=== PATIENT | male | born 1990 | race Caucasian/White ===

== ENCOUNTER 2017-04-24 04:14 | Emergency (ER) | payer OTHER ==
[~2017-04-24] VITALS: Ht 175.3 cm; Wt 77.3 kg
[2017-04-24] MEDS: HYDROCODONE/ACETAMINOPHEN 5-325 MG TABLET PO ONE (06:11)
[2017-04-24] MEDS: CLINDAMYCIN PHOS 150 MG/ML 4 ML VIAL IM ONE (06:29)
[2017-04-24 06:33] VITALS: BP 120/79
== END 2017-04-24 06:34 | disposition home or self-care (01) ==
LOC: EMS 04:14
DX: K04.7 Periapical abscess without sinus (principal); G43.909 Migraine, unspecified, not intractable, without status migrainosus; Z88.0 Allergy status to penicillin; Z98.890 Other specified postprocedural states
CPT/HCPCS: 96372; 99283; S0077

== ENCOUNTER 2021-05-26 02:40 | Inpatient (IN) | payer MEDICAID, OTHER ==
[~2021-05-26] VITALS: Ht 175.3 cm; Wt 99.3 kg
[~2021-05-26 02:40] MED LIST: DIVA-112 PO; GABA-1181 PO; PROZ20 PO
[2021-05-26 03:28] LABS: BASOPHILS % (AUTO) 0.7 % (0.0-2.0); EOSINOPHILS % (AUTO) 1.7 % (1.0-6.0); HEMATOCRIT 44.3 % (41-53); HEMOGLOBIN 14.9 g/dL (13.5-17.5); LYMPHOCYTES # (AUTO) 1.8 K/uL (1.0-4.8); LYMPHOCYTES % (AUTO) 28.9 % (22.0-44.0); MEAN CORPUSCULAR HEMOGLOBIN 26.9 pg (26.0-34.0); MEAN CORPUSCULAR HGB CONC 33.6 G/dL (31.0-37.0); MEAN CORPUSCULAR VOLUME 80 fL (80-100); MONOCYTES # (AUTO) 0.4 K/uL (0.1-1.0); MONOCYTES % (AUTO) 6.8 % (2.0-9.0); NEUTROPHILS # (AUTO) 3.9 K/uL (1.8-7.7); NEUTROPHILS % (AUTO) 61.9 % (40.0-70.0); PLATELET COUNT (AUTO) 335 K/uL (150-450); RED BLOOD CELL COUNT(AUTO) 5.53 MIL/uL (4.50-5.90); RED CELL DISTRIBUTION WIDTH 14.3 % (11.5-14.5)
[2021-05-26 03:34] LABS: ANION GAP 8 mmol/L (8-16); CALCIUM, TOTAL 9.2 mg/dL (8.8-10.5); CARBON DIOXIDE 28 mmol/L (22-29); CHLORIDE 102 mmol/L (98-107); CREATININE 0.87 mg/dL (0.60-1.30); GLOMERULAR FILTR. RATE CALC > 60 mL/min (>60); GLUCOSE,RANDOM 99 mg/dL (70-110); POTASSIUM 3.3 mmol/L (3.5-5.1); SODIUM SERUM 138 mmol/L (136-145); UREA NITROGEN, BLOOD 10 mg/dL (7-18)
[2021-05-26 03:41] LABS: ALANINE AMINOTRANSFERASE 24 U/L (12-78); ALBUMIN 3.8 g/dL (3.4-5.0); ALKALINE PHOSPHATASE 78 U/L (46-116); ASPARTATE AMINOTRANSFERASE 15 U/L (15-37); BILIRUBIN,TOTAL 0.4 mg/dL (0.1-1.0); TOTAL PROTEIN, SERUM 7.5 g/dL (6.4-8.2)
[2021-05-26 03:43] LABS: VALPROIC ACID < 3 mcg/mL (50-100)
[2021-05-26 03:57] LABS: COVID AG,FIA SOURCE NASAL SWAB
[2021-05-26 04:24] LABS: AMPHET/METH SCREEN,URINE NEGATIVE (NEGATIVE); BARBITURATE SCREEN, URINE NEGATIVE (NEGATIVE); BENZODIAZEPINES SCREEN,URINE NEGATIVE (NEGATIVE); CANNABINOID SCREEN,URINE POSITIVE (NEGATIVE); COCAINE SCREEN,URINE NEGATIVE (NEGATIVE); METHADONE SCREEN, URINE NEGATIVE (NEGATIVE); OPIATE SCREEN,URINE NEGATIVE (NEGATIVE)
[2021-05-26 04:27] LABS: PHENCYCLIDINE SCREEN,URINE NEGATIVE (NEGATIVE)
[2021-05-26] MEDS ORDERED: POTASSIUM CHLORIDE 20 MEQ ER TABLET PO ONE (07:15)
[2021-05-26] MEDS ORDERED: LORazepam 2 MG TABLET PO PRN (08:00)
[2021-05-26] MEDS ORDERED: HALOPERIDOL 5 MG TABLET PO PRN (08:00)
[2021-05-26 11:13] VITALS: BP 103/73
[2021-05-26] MEDS: FLUoxetine HCL 20 MG CAPSULE PO SCH (12:23)
[2021-05-26] MEDS: DIVALPROEX SODIUM 500 MG DR TABLET PO SCH (12:24)
[2021-05-26] MEDS ORDERED: ACETAMINOPHEN 325 MG TABLET PO PRN (13:45)
[2021-05-26] MEDS ORDERED: NICOTINE 14 MG/24 HOUR PATCH TD PRN (13:45)
[2021-05-26] MEDS ORDERED: PETROLATUM,WHITE 28 GM JELLY TP PRN (13:45)
[2021-05-26] MEDS ORDERED: LOPERAMIDE HCL 2 MG CAPSULE PO PRN (13:45)
[2021-05-26] MEDS ORDERED: MAG HYDROX/AL HYDROX/SIMETH ES 30 ML SUSPENSION UDCUP PO PRN (13:45)
[2021-05-26] MEDS ORDERED: GuaiFENesin/D-METHORPHAN [SUGAR-FREE] 200-20MG/10 ML SYRUP UDCUP PO PRN (13:45)
[2021-05-26] MEDS ORDERED: DOCUSATE SODIUM 100 MG CAPSULE PO PRN (13:45)
[2021-05-26] MEDS ORDERED: IBUPROFEN 400 MG TABLET PO PRN (13:45)
[2021-05-26] MEDS ORDERED: CloNIDine HCL 0.1 MG TABLET PO PRN (13:45)
[2021-05-26] MEDS ORDERED: ALBUTEROL SULFATE HFA 90 MCG/PUFF 8 GM INHALER IH PRN (13:45)
[2021-05-26] MEDS ORDERED: MAGNESIUM HYDROXIDE SUSPENSION 30 ML UDCUP PO PRN (13:45)
[2021-05-26] MEDS ORDERED: ONDANSETRON HCL 4 MG TABLET PO PRN (13:45)
[2021-05-26 16:05] VITALS: BP 113/72
[2021-05-26] MEDS: GABAPENTIN 300 MG CAPSULE PO SCH (16:16)
[2021-05-27 00:50] VITALS: BP 117/76
[2021-05-27 08:07] VITALS: BP 111/66
[2021-05-27] MEDS: DIVALPROEX SODIUM 500 MG DR TABLET PO SCH (08:38)
[2021-05-27] MEDS: FLUoxetine HCL 20 MG CAPSULE PO SCH (08:38)
[2021-05-27] MEDS: GABAPENTIN 300 MG CAPSULE PO SCH ×2 (08:38→16:06)
[2021-05-27 16:03] VITALS: BP 116/69
[2021-05-27] MEDS: ZOLPIDEM TARTRATE 10 MG TABLET PO PRN (21:51)
[2021-05-28 05:25] VITALS: BP 110/66
[2021-05-28 08:14] VITALS: BP 114/73
[2021-05-28] MEDS: FLUoxetine HCL 20 MG CAPSULE PO SCH (08:50)
[2021-05-28] MEDS: DIVALPROEX SODIUM 500 MG DR TABLET PO SCH (08:50)
[2021-05-28] MEDS: GABAPENTIN 300 MG CAPSULE PO SCH ×2 (08:51→16:58)
[2021-05-28] MEDS: ZOLPIDEM TARTRATE 10 MG TABLET PO PRN (21:46)
[2021-05-29 06:08] VITALS: BP 126/78
[2021-05-29 08:35] VITALS: BP 124/70
[2021-05-29] MEDS: GABAPENTIN 300 MG CAPSULE PO SCH (09:00)
[2021-05-29] MEDS: FLUoxetine HCL 20 MG CAPSULE PO SCH (09:00)
[2021-05-29] MEDS: DIVALPROEX SODIUM 500 MG DR TABLET PO SCH (09:00)
[2021-05-29] MEDS ORDERED: DIVA-112 PO (11:10)
[2021-05-29] MEDS ORDERED: GABA-1181 PO (11:10)
[2021-05-29] MEDS ORDERED: PROZ20 PO (11:10)
== END 2021-05-29 13:47 | disposition home or self-care (01) | DRG 753 ==
LOC: EMS 02:41 → B2S 08:35
PROVIDERS: ADMIT Psychiatry & Neurology Child & Adolescent Psychiatry; ATTEND Psychiatry & Neurology Child & Adolescent Psychiatry
DX: F31.4 Bipolar disorder, current episode depressed, severe, without psychotic features (principal); R45.851 Suicidal ideations; E66.9 Obesity, unspecified; Z20.822 Contact with and (suspected) exposure to COVID-19; E87.6 Hypokalemia; H54.61 Unqualified visual loss, right eye, normal vision left eye; F12.10 Cannabis abuse, uncomplicated; Z88.0 Allergy status to penicillin; Z59.00 Homelessness unspecified; Z68.32 Body mass index [BMI] 32.0-32.9, adult
CPT/HCPCS: 80053; 80164; 85025; 87081; 99285; G0480

== ENCOUNTER 2021-06-03 07:31 | Emergency (ER) | payer MEDICAID, OTHER ==
[~2021-06-03] VITALS: Ht 172.7 cm; Wt 100.0 kg
[2021-06-03 07:33] VITALS: BP 108/61
[2021-06-03 08:04] LABS: COVID AG,FIA SOURCE NASOPHARYNGEAL
[2021-06-03 08:26] LABS: BASOPHILS % (AUTO) 0.9 % (0.0-2.0); EOSINOPHILS % (AUTO) 1.7 % (1.0-6.0); HEMATOCRIT 43.4 % (41-53); HEMOGLOBIN 14.4 g/dL (13.5-17.5); LYMPHOCYTES # (AUTO) 1.7 K/uL (1.0-4.8); LYMPHOCYTES % (AUTO) 27.2 % (22.0-44.0); MEAN CORPUSCULAR HEMOGLOBIN 26.9 pg (26.0-34.0); MEAN CORPUSCULAR HGB CONC 33.3 G/dL (31.0-37.0); MEAN CORPUSCULAR VOLUME 81 fL (80-100); MONOCYTES # (AUTO) 0.3 K/uL (0.1-1.0); MONOCYTES % (AUTO) 4.5 % (2.0-9.0); NEUTROPHILS # (AUTO) 4.1 K/uL (1.8-7.7); NEUTROPHILS % (AUTO) 65.7 % (40.0-70.0); PLATELET COUNT (AUTO) 299 K/uL (150-450); RED BLOOD CELL COUNT(AUTO) 5.38 MIL/uL (4.50-5.90)
[2021-06-03 08:35] LABS: ANION GAP 8 mmol/L (8-16); CALCIUM, TOTAL 9.4 mg/dL (8.8-10.5); CARBON DIOXIDE 28 mmol/L (22-29); CHLORIDE 104 mmol/L (98-107); CREATININE 1.17 mg/dL (0.60-1.30); GLOMERULAR FILTR. RATE CALC > 60 mL/min (>60); GLUCOSE,RANDOM 156 mg/dL (70-110); POTASSIUM 3.7 mmol/L (3.5-5.1); SODIUM SERUM 140 mmol/L (136-145); UREA NITROGEN, BLOOD 11 mg/dL (7-18)
[2021-06-03 08:42] LABS: ALANINE AMINOTRANSFERASE 31 U/L (12-78); ALBUMIN 3.8 g/dL (3.4-5.0); ALKALINE PHOSPHATASE 76 U/L (46-116); ASPARTATE AMINOTRANSFERASE 15 U/L (15-37); BILIRUBIN,TOTAL 0.3 mg/dL (0.1-1.0); TOTAL PROTEIN, SERUM 7.7 g/dL (6.4-8.2)
[2021-06-03 09:09] LABS: AMPHET/METH SCREEN,URINE NEGATIVE (NEGATIVE); BARBITURATE SCREEN, URINE NEGATIVE (NEGATIVE); BENZODIAZEPINES SCREEN,URINE NEGATIVE (NEGATIVE); CANNABINOID SCREEN,URINE POSITIVE (NEGATIVE); COCAINE SCREEN,URINE NEGATIVE (NEGATIVE); METHADONE SCREEN, URINE NEGATIVE (NEGATIVE); OPIATE SCREEN,URINE NEGATIVE (NEGATIVE); PHENCYCLIDINE SCREEN,URINE NEGATIVE (NEGATIVE)
== END 2021-06-03 12:47 | disposition home or self-care (01) ==
LOC: EMS 07:36
DX: R45.851 Suicidal ideations (principal); F32.9 Major depressive disorder, single episode, unspecified; F17.210 Nicotine dependence, cigarettes, uncomplicated; Z20.822 Contact with and (suspected) exposure to COVID-19; Z91.14 Patient's other noncompliance with medication regimen; Z59.00 Homelessness unspecified
CPT/HCPCS: 36415; 80053; 80164; 80307; 85025; 87426; 93005; 99284; G0480

== ENCOUNTER 2022-08-28 22:05 | Emergency (ER) | payer MEDICAID, OTHER ==
[~2022-08-28] VITALS: Ht 175.3 cm; Wt 72.0 kg
[2022-08-28 22:17] VITALS: TEMP 98.4
[2022-08-28 23:45] VITALS: BP 115/69; PULSE 83; RESP 18
[2022-08-28] MEDS ORDERED: SODIUM CHLORIDE 0.9% 1,000 ML IV ONE (23:45)
== END 2022-08-29 01:10 | disposition left against medical advice (07) ==
LOC: EMS 22:05
DX: R42 Dizziness and giddiness (principal); F17.210 Nicotine dependence, cigarettes, uncomplicated; F12.90 Cannabis use, unspecified, uncomplicated; F15.90 Other stimulant use, unspecified, uncomplicated; H54.8 Legal blindness, as defined in USA; Z98.890 Other specified postprocedural states; Z88.0 Allergy status to penicillin
CPT/HCPCS: 93005; 99283

== ENCOUNTER 2022-09-04 20:08 | Emergency (ER) | payer OTHER ==
[~2022-09-04] VITALS: Ht 175.3 cm; Wt 86.0 kg
[2022-09-04 21:02] VITALS: BP 124/74; PULSE 76; RESP 17; TEMP 98
[2022-09-04] MEDS ORDERED: LevETIRAcetam 1,000 MG in DEXTROSE 5%-WATER 100 ML IV ONE (21:15)
[2022-09-04] MEDS ORDERED: GABAPENTIN 300 MG CAPSULE PO ONE (21:15)
[2022-09-04] MEDS ORDERED: VALPROIC ACID 250 MG CAPSULE PO ONE (21:15)
[2022-09-04 21:35] LABS: BASOPHILS % (AUTO) 0.8 % (0.0-2.0); EOSINOPHILS % (AUTO) 4.1 % (1.0-6.0); HEMATOCRIT 35.8 % (41-53); HEMOGLOBIN 11.8 g/dL (13.5-17.5); MEAN CORPUSCULAR HEMOGLOBIN 27.1 pg (26.0-34.0); MEAN CORPUSCULAR HGB CONC 32.8 G/dL (31.0-37.0); MEAN CORPUSCULAR VOLUME 83 fL (80-100); MONOCYTES # (AUTO) 0.7 K/uL (0.1-1.0); MONOCYTES % (AUTO) 8.3 % (2.0-9.0); NEUTROPHILS # (AUTO) 5.5 K/uL (1.8-7.7); NEUTROPHILS % (AUTO) 63.8 % (40.0-70.0); PLATELET COUNT (AUTO) 326 K/uL (150-450); RED BLOOD CELL COUNT(AUTO) 4.34 MIL/uL (4.50-5.90); RED CELL DISTRIBUTION WIDTH 14.5 % (11.5-14.5)
[2022-09-04 21:43] LABS: ANION GAP 7 mmol/L (8-16); CALCIUM, TOTAL 8.5 mg/dL (8.8-10.5); CARBON DIOXIDE 28 mmol/L (22-29); CHLORIDE 102 mmol/L (98-107); CREATININE 0.82 mg/dL (0.60-1.30); GLOMERULAR FILTR. RATE CALC > 60 mL/min (>60); GLUCOSE,RANDOM 128 mg/dL (70-110); POTASSIUM 3.3 mmol/L (3.5-5.1); SODIUM SERUM 137 mmol/L (136-145)
[2022-09-04] MEDS ORDERED: POTASSIUM CHLORIDE 10% 40 MEQ/30 ML LIQUID UDCUP PO ONE (23:00)
== END 2022-09-04 23:26 | disposition home or self-care (01) ==
LOC: EMS 20:09
DX: G40.909 Epilepsy, unspecified, not intractable, without status epilepticus (principal); F32.A Depression, unspecified; F17.210 Nicotine dependence, cigarettes, uncomplicated; F12.90 Cannabis use, unspecified, uncomplicated; F15.90 Other stimulant use, unspecified, uncomplicated; Z88.0 Allergy status to penicillin
CPT/HCPCS: 99284; 96365; 80048; 85025; J0712; G0480; J7060

== ENCOUNTER 2022-12-18 12:33 | Inpatient (IN) | payer MEDICAID ==
[2022-12-18 14:56] LABS: GLUCOMETER DEV NAME(LOC) POC.BV; POC SARS-COV2 AG, FIA NEGATIVE (NEGATIVE)
[2022-12-18] MEDS ORDERED: LORazepam 2 MG/ML VIAL ONE (15:06)
[2022-12-18] MEDS ORDERED: HALOPERIDOL LACTATE 5 MG/ML VIAL ONE (15:07)
[2022-12-18] MEDS ORDERED: DiphenhydrAMINE HCL 50 MG/ML VIAL ONE (15:07)
[2022-12-18] MEDS ORDERED: SERT-439 PO (15:09)
[2022-12-18] MEDS ORDERED: GABA800T9 PO (15:09)
[2022-12-18] MEDS ORDERED: LORazepam 2 MG TABLET PO PRN (15:45)
[2022-12-18] MEDS ORDERED: ZOLPIDEM TARTRATE 10 MG TABLET PO PRN (15:45)
[2022-12-18] MEDS ORDERED: HALOPERIDOL 5 MG TABLET PO PRN (15:45)
[2022-12-18] MEDS ORDERED: INFLUENZA VIRUS VACCINE QVS 2023-24 (6MO+)/PF 60 MCG/0.5 ML SYRINGE IM. ONE (20:30)
[2022-12-19 07:11] VITALS: BP 100/58; PULSE 60; RESP 18; TEMP 97.8; O2SAT 99
[2022-12-19 09:18] VITALS: BP 105/60; PULSE 61; RESP 17; TEMP 96.9; O2SAT 96
[2022-12-19] MEDS ORDERED: ALBUTEROL SULFATE HFA 90 MCG/PUFF 8 GM INHALER IH PRN (10:00)
[2022-12-19] MEDS ORDERED: IBUPROFEN 400 MG TABLET PO PRN (10:00)
[2022-12-19] MEDS ORDERED: LOPERAMIDE HCL 2 MG CAPSULE PO PRN (10:00)
[2022-12-19] MEDS ORDERED: MAG HYDROX/ALUMINUM HYD/SIMETH ES 30 ML SUSPENSION UDCUP PO PRN (10:00)
[2022-12-19] MEDS ORDERED: GuaiFENesin/D-METHORPHAN [SUGAR-FREE] 200-20MG/10 ML SYRUP UDCUP PO PRN (10:00)
[2022-12-19] MEDS ORDERED: DOCUSATE SODIUM 100 MG CAPSULE PO PRN (10:00)
[2022-12-19] MEDS ORDERED: MAGNESIUM HYDROXIDE SUSPENSION 30 ML UDCUP PO PRN (10:00)
[2022-12-19] MEDS ORDERED: CloNIDine HCL 0.1 MG TABLET PO PRN (10:00)
[2022-12-19] MEDS ORDERED: ACETAMINOPHEN 325 MG TABLET PO PRN (10:00)
[2022-12-19] MEDS ORDERED: ONDANSETRON HCL 4 MG TABLET PO PRN (10:00)
[2022-12-19] MEDS ORDERED: NICOTINE 14 MG/24 HOUR PATCH TD PRN (10:00)
[2022-12-19] MEDS ORDERED: PETROLATUM,WHITE 28 GM JELLY TP PRN (10:00)
[2022-12-19] MEDS: GABAPENTIN 400 MG CAPSULE PO SCH ×2 (12:13→16:21)
[2022-12-19 20:39] VITALS: BP 92/53; PULSE 70; RESP 18; TEMP 97.3; O2SAT 99
[2022-12-20] MEDS: SERTRALINE HCL 50 MG TABLET PO SCH (08:44)
[2022-12-20] MEDS: DIVALPROEX SODIUM 500 MG DR TABLET PO SCH (08:44)
[2022-12-20] MEDS: GABAPENTIN 400 MG CAPSULE PO SCH ×3 (08:44→17:08)
[2022-12-20 08:52] VITALS: BP 110/68; PULSE 62; RESP 16; TEMP 97.7; O2SAT 99
[2022-12-20 09:06] LABS: BASOPHILS % (AUTO) 0.5 % (0.0-2.0); HEMATOCRIT 44.5 % (41-53); HEMOGLOBIN 14.5 g/dL (13.5-17.5); LYMPHOCYTES # (AUTO) 1.2 K/uL (1.0-4.8); LYMPHOCYTES % (AUTO) 16.6 % (22.0-44.0); MEAN CORPUSCULAR HEMOGLOBIN 27.1 pg (26.0-34.0); MEAN CORPUSCULAR HGB CONC 32.5 G/dL (31.0-37.0); MEAN CORPUSCULAR VOLUME 83 fL (80-100); MONOCYTES # (AUTO) 0.4 K/uL (0.1-1.0); NEUTROPHILS # (AUTO) 5.6 K/uL (1.8-7.7); NEUTROPHILS % (AUTO) 75.9 % (40.0-70.0); PLATELET COUNT (AUTO) 338 K/uL (150-450); RED BLOOD CELL COUNT(AUTO) 5.34 MIL/uL (4.50-5.90); RED CELL DISTRIBUTION WIDTH 14.5 % (11.5-14.5); WHITE BLOOD COUNT (AUTO) 7.3 K/uL (4.5-11.0)
[2022-12-20 09:43] LABS: ALANINE AMINOTRANSFERASE 26 U/L (12-78); ALBUMIN 3.6 g/dL (3.4-5.0); ALKALINE PHOSPHATASE 70 U/L (46-116); ANION GAP 5 mmol/L (8-16); ASPARTATE AMINOTRANSFERASE 20 U/L (15-37); BILIRUBIN,TOTAL 0.3 mg/dL (0.1-1.0); CALCIUM, TOTAL 9.5 mg/dL (8.8-10.5); CARBON DIOXIDE 30 mmol/L (22-29); CHLORIDE 104 mmol/L (98-107); CREATININE 0.84 mg/dL (0.60-1.30); FREE T4 (FREE THYROXINE) 1.65 ng/dL (0.76-1.46); GLOMERULAR FILTR. RATE CALC > 60 mL/min (>60); GLUCOSE,RANDOM 86 mg/dL (70-110); POTASSIUM 4.1 mmol/L (3.5-5.1); SODIUM SERUM 139 mmol/L (136-145); THYROID STIMULATING HORMONE 0.37 uIU/mL (0.36-3.74); TOTAL PROTEIN, SERUM 7.6 g/dL (6.4-8.2); UREA NITROGEN, BLOOD 15 mg/dL (7-18)
[2022-12-20] MEDS ORDERED: SERT-439 PO (13:44)
[2022-12-20] MEDS ORDERED: DIVA-112 PO (13:44)
[2022-12-20] MEDS ORDERED: GABA-1201 PO (13:44)
[2022-12-20 20:56] VITALS: BP 129/73; PULSE 68; RESP 18; TEMP 97.6; O2SAT 97
[2022-12-21] MEDS: DIVALPROEX SODIUM 500 MG DR TABLET PO SCH (08:00)
[2022-12-21] MEDS: GABAPENTIN 400 MG CAPSULE PO SCH (08:00)
[2022-12-21] MEDS: SERTRALINE HCL 50 MG TABLET PO SCH (08:00)
[2022-12-21 08:33] VITALS: BP 112/67; PULSE 68; RESP 17; TEMP 97.5; O2SAT 100
[2022-12-21 09:29] LABS: CHOL/HDL RATIO 4.3 (4.2-7.3)
== END 2022-12-21 10:58 | disposition home or self-care (01) | DRG 751 ==
LOC: B3A 22:50
PROVIDERS: ADMIT Psychiatry & Neurology Child & Adolescent Psychiatry; ATTEND Psychiatry & Neurology Child & Adolescent Psychiatry
DX: F33.2 Major depressive disorder, recurrent severe without psychotic features (principal); G40.909 Epilepsy, unspecified, not intractable, without status epilepticus; F41.9 Anxiety disorder, unspecified; G47.00 Insomnia, unspecified; Z20.822 Contact with and (suspected) exposure to COVID-19; Z88.0 Allergy status to penicillin; Z79.899 Other long term (current) drug therapy
CPT/HCPCS: 80053; 80061; 83036; 84439; 84443; 85025; 86592; J1200; J1630; J2060

== ENCOUNTER 2022-12-18 16:07 | Emergency (ER) | payer MEDICAID, OTHER ==
[~2022-12-18] VITALS: Ht 172.7 cm; Wt 72.7 kg
[~2022-12-18 16:07] MED LIST changes: +GABA800T9 PO; +SERT-439 PO
[2022-12-18 16:58] VITALS: TEMP 97.7
[2022-12-18 17:31] LABS: BASOPHILS % (AUTO) 0.5 % (0.0-2.0); EOSINOPHILS % (AUTO) 2.4 % (1.0-6.0); HEMATOCRIT 37.5 % (41-53); HEMOGLOBIN 12.1 g/dL (13.5-17.5); LYMPHOCYTES # (AUTO) 1.6 K/uL (1.0-4.8); LYMPHOCYTES % (AUTO) 21.3 % (22.0-44.0); MEAN CORPUSCULAR HEMOGLOBIN 26.7 pg (26.0-34.0); MEAN CORPUSCULAR HGB CONC 32.3 G/dL (31.0-37.0); MEAN CORPUSCULAR VOLUME 83 fL (80-100); MONOCYTES # (AUTO) 0.5 K/uL (0.1-1.0); MONOCYTES % (AUTO) 7.1 % (2.0-9.0); NEUTROPHILS # (AUTO) 5.2 K/uL (1.8-7.7); NEUTROPHILS % (AUTO) 68.7 % (40.0-70.0); PLATELET COUNT (AUTO) 320 K/uL (150-450); RED BLOOD CELL COUNT(AUTO) 4.55 MIL/uL (4.50-5.90); RED CELL DISTRIBUTION WIDTH 14.7 % (11.5-14.5); WHITE BLOOD COUNT (AUTO) 7.6 K/uL (4.5-11.0)
[2022-12-18 17:42] LABS: ANION GAP 6 mmol/L (8-16); CALCIUM, TOTAL 8.9 mg/dL (8.8-10.5); CARBON DIOXIDE 28 mmol/L (22-29); CHLORIDE 104 mmol/L (98-107); GLOMERULAR FILTR. RATE CALC > 60 mL/min (>60); GLUCOSE,RANDOM 96 mg/dL (70-110); POTASSIUM 3.7 mmol/L (3.5-5.1); SODIUM SERUM 138 mmol/L (136-145); UREA NITROGEN, BLOOD 15 mg/dL (7-18)
[2022-12-18 17:47] LABS: ALANINE AMINOTRANSFERASE 28 U/L (12-78); ALKALINE PHOSPHATASE 59 U/L (46-116); ASPARTATE AMINOTRANSFERASE 21 U/L (15-37); BILIRUBIN,TOTAL 0.2 mg/dL (0.1-1.0); TOTAL PROTEIN, SERUM 6.4 g/dL (6.4-8.2)
[2022-12-18 17:50] LABS: ALCOHOL, BLOOD (SERUM) < 3 mg/dL (0-10)
[2022-12-18 20:57] LABS: COVID AG,FIA SOURCE NASAL SWAB
[2022-12-18 21:16] LABS: SARS-COV2 (COVID) ANTIGEN,FIA Negative (Negative)
[2022-12-18 22:31] VITALS: BP 89/41; PULSE 69; RESP 16
[2022-12-20] MEDS ORDERED: DIVA-112 PO (13:44)
[2022-12-20] MEDS ORDERED: SERT-439 PO (13:44)
[2022-12-20] MEDS ORDERED: GABA-1201 PO (13:44)
== END 2022-12-19 05:02 ==
LOC: EMS 16:08
DX: F32.9 Major depressive disorder, single episode, unspecified (principal); R45.851 Suicidal ideations; R56.9 Unspecified convulsions; F17.210 Nicotine dependence, cigarettes, uncomplicated; F12.90 Cannabis use, unspecified, uncomplicated; F15.90 Other stimulant use, unspecified, uncomplicated; Z88.0 Allergy status to penicillin; Z20.822 Contact with and (suspected) exposure to COVID-19
CPT/HCPCS: 99285; 87426; 80053; 85025; G0480